=== PATIENT | male | born 2005 | race Caucasian/White ===

== ENCOUNTER 2025-05-28 18:30 | Emergency (ER) | payer SELFPAY ==
[2025-05-28 18:41] VITALS: BP 118/71; PULSE 77; TEMP 37.1; O2SAT 99; BMI 34.3
--- NOTE | 2025-05-28 19:33 | ED.URI1 ---
HPI - URI/Sore Throat General Chief Complaint: Upper Respiratory Infection Stated Complaint: Upper Respiratory Infection Time Seen by Provider: 05/28/25 19:25 Source: patient History of Present Illness HPI Narrative: Patient is a 19-year-old male who presents to the ER with concerns of persisting cough. He denies any recent fever or chills but states he was exposed to his sister who was diagnosed with COVID. Patient reports having similar symptoms at the time of her illness and assumed that he had the same. It is now 3 weeks later and he has a irritating cough that is nonproductive right sided throat pain and slight ear pressure. He denies any chest pain or shortness of breath and has still been active. He denies any nausea vomiting or abdominal pain. Patient states he figured the symptoms would be better by now but seem to be persisting. Throat discomfort is improved with drinking liquids. He speaks with a clear voice and appears in no distress. He denies any history of asthma denies any recent long travel surgeries or flights. MD elicited complaint: Reports cough and sore throat Pertinent past history: Denies asthma Onset (ago): week(s) (3) Consistency: Reports constant Severity: mild Able to tolerate fluids by mouth: Yes Context: Reports sick contacts Associated symptoms: Reports denies other symptoms Related Data Previous Rx's ?Medication ?Instructions ?Recorded amoxicillin 875 mg tablet 875 mg PO BID 10 days #20 tabs 05/28/25 benzonatate 200 mg capsule 200 mg PO TID PRN cough #15 caps 05/28/25 Allergies Allergy/AdvReac Type Severity Reaction Status Date / Time No Known Drug Allergies Allergy Verified 05/28/25 18:43 Review of Systems ROS Constitutional Denies: fever or chills Eyes Denies: change in vision Ears, nose, mouth, and throat Reports: throat pain; Denies: neck pain, throat swelling, difficulty swallowing or hoarseness Cardiovascular Denies: chest pain, palpitations or edema Respiratory Reports: cough and chest congestion; Denies: shortness of breath, wheezing, stridor, pain on inspiration, change in phlegm color or coughing up blood Gastrointestinal Denies: abdominal pain, nausea or vomiting Genitourinary Denies: painful urination Musculoskeletal Denies: back pain Integumentary/Breast Denies: rash Neurological Denies: headache Psychiatric Denies: anxiety Endocrine Denies: excessive urination PFSH PFSH Social History Little interest or pleasure in doing things: not at all Feeling down, depressed, or hopeless: not at all Exam Narrative Exam Narrative: Nurse's notes and vital signs reviewed and patient is not hypoxic. General: The patient appears well and in no apparent distress. Patient is resting comfortably in cart. Patient speaks in clear sentences and tolerate secretions, he is drinking fluid at the bedside. Skin: Warm, dry, no pallor noted. No evidence of rash Head: Normocephalic, atraumatic Neck: Supple, trachea midline, no tenderness, minimal tender anterior cervical adenopathy, no posterior occipital adenopathy. Ears, nose, mouth, and throat: Left TM is clear with no auricle or tragal tenderness. Right TM is injected with slight middle ear effusion. Oral mucosa is moist, posterior oropharynx with 2+ tonsillar hypertrophy that appears symmetric with erythema no exudate, uvula is midline Cardiovascular: Regular rate and rhythm Respiratory: Patient is in no distress, no accessory muscle use, lungs are clear to auscultation, no wheezing, rales, or rhonchi. Chest wall: No tenderness Musculoskeletal: Normal ROM, no tenderness, no swelling GI: Normal bowel sounds, no tenderness to palpation, no masses appreciated. No rebound, guarding, or rigidity noted. Neurological: Alert and oriented ?4 Psychiatric: Cooperative Constitutional Vital Signs, click to edit/add: Last Vital Signs Temp 98.7 F 05/28/25 18:41 Pulse 77 05/28/25 18:41 Resp 18 05/28/25 18:41 BP 118/71 05/28/25 18:41 Pulse Ox 99 05/28/25 18:41 O2 Del Method Room Air 05/28/25 18:41 Course Vital Signs Vital signs: Vital Signs Temperature 98.7 F 05/28/25 18:41 Pulse Rate 77 05/28/25 18:41 Respiratory Rate 18 05/28/25 18:41 Blood Pressure 118/71 05/28/25 18:41 Pulse Oximetry 99 05/28/25 18:41 Oxygen Delivery Method Room Air 05/28/25 18:41 Temperature 98.7 F 05/28/25 18:41 Pulse Rate 77 05/28/25 18:41 Respiratory Rate 18 05/28/25 18:41 Blood Pressure 118/71 05/28/25 18:41 Pulse Oximetry 99 05/28/25 18:41 Oxygen Delivery Method Room Air 05/28/25 18:41 MDM - URI/Sore Throat MDM Narrative Medical decision making narrative: Patient is not hypoxic, vital signs stable, PERC score 0. Patient has irritating cough following likely COVID upper respiratory infection with similar symptoms and exposure to his sister. Patient notes his cough is annoying and irritating and consistent with likely a postviral process. He denies any shortness of breath. We discussed his throat irritation and symptoms on the right side involving his throat and ear. He does have conjunctival injection of his right ear and prominent tonsillar hypertrophy with erythema. He is swallowing secretions easily and agreeable to tolerate oral amoxicillin for a course of antibiotics given his length of symptoms and ear involvement. He will be given a prescription of Tessalon Perles for his cough. We discussed a follow-up to the family doctor for reevaluation of symptoms and importance of PCP care. Viral swabs were discussed but we will hold given his clinical picture and length of symptoms. Assumed COVID exposure to his sister. The patient is to followup with primary care physician in next 2-3 days or to return to the emergency department should any of the signs or symptoms worsen or new symptoms develop. Patient had questions answered. The patient agrees with the following Diagnosis and Treatment plan and the patient will be discharged home. Differential Diagnosis Differential diagnosis: Likely upper respiratory infection, otitis media, influenza and pharyngitis Discharge Plan Discharge Chief Complaint: Upper Respiratory Infection Clinical Impression: Upper respiratory infection, Acute right otitis media, Acute tonsillitis, Close exposure to COVID-19 virus Patient Disposition: Home, Self-Care Time of Disposition Decision: 19:35 Condition: Good Prescriptions / Home Meds: New amoxicillin 875 mg tablet 875 mg PO BID 10 Days Qty: 20 0RF benzonatate 200 mg capsule 200 mg PO TID PRN (Reason: cough) Qty: 15 0RF Print Language: Mexican Instructions: Ear Infection (ED), Upper Respiratory Infection (ED), COVID-19: Slow the Coronavirus Spread (ED) Referrals: [facility] [Physician] - As soon as possible Jaz Winters NP [Physician] - As soon as possible Discharge Date/Time: 05/28/25 19:53
--- OUTSIDE RECORDS SUMMARY | 2025-05-28 19:39 | XMS_ITS | Patient Health Record ---
Author Organization [facility] Address [address] [place] [address] Care Team Providers Care Order Checker Packer Processer Name Role Phone MARIELENA MARIELENA Primary Care Provider Unavailab zeke [place], Kara Unavailable [phone] Allergies No Known Allergies Reason For Referral No Information Medications Medication SIG (Take, Route, Frequency, Duration) Notes Start Date End Date Status CloNIDine Hydrochloride 0.1 mg take 1 ta blet by oral route 2 times every day ORAL CLONIDINE HCL Not-TakingAdderall XR 25 mgtake 1 capsule by oral route every day in the morning upon awakening ORALADDERALL XRNot-Taking Social History Tobacco Use: Social History Observation Description Date Details (start date - stop date) Current Smoker NA - NA Smoking History Question Answer Notes Smoking Status Current Smoker Problems Problem Type SNOMED Code ICD Code Onset Dates Problem Status W/U Status Risk Notes Problem Information temporarily unavailable Right hand pain (M79.641) ActiveconfirmedProblemInformation temporarily unavailableDisplaced fracture of distal phalanx of right ring finger, initial encounter for closed fracture (S6 2.634A)ActiveconfirmedProblemInformation temporarily unavailableDisplaced fracture of distal phalanx of right ring finger, initial encounter for open fracture (S62.634B)ActiveconfirmedProblemInformation temporarily unavailable Crushing injury of finger, initial encounter (S67.10XA)Activeconfirmed Plan Of Treatment No Information Insurance Providers Payer Name Payer Address Payer Phone Subscriber Number Group Number Insured Name Patient Relationship to Insured Coverage Start Date Coverage End Date Medicaid [place] [address] [facility] [place] [phone] [id number] Afsaneh SAHU - patient is the insured Medical (General) History Surgical History Surgery Date(Month/Year)
--- OUTSIDE RECORDS SUMMARY | 2025-05-28 19:39 | XMS_ITS | Clinical Summary ---
Author Organization [facility] Address [address], [address] [place] [address] Care Team Providers Care Retail Marketing Coordinator Name Role Phone John Jeter MD Primary Care Provider [phone] Allergies Active AllergyReactionsCriticalityNoted DateCommentsDust Mite Ctsvsjh2807/16/2014 Medications No known medications Active Problems ProblemNoted DateDiagnosed DateAcute tikfnkloizgu86/06/2020Left lower quadrant abdominal pain11/02/2019 Immunizations ImmunizationAdministration DatesNext DueDTaP, INFANRIX, (age 6w-6y), IM, 0.5mL 02/10/2008,03/13/2005,03/28/2004,2003,2003HPV, GARDASIL 9, (age 9y- 45y), IM, 0.5mL12/24/2015,03/16/2015,12/22/2014Hep A, HAVRIX, VAQTA, (age 12m- 18y), IM, 0.5mL06/12/2011,12/09/2010Hep B, ENGERIX-B, RECOMBIVAX-HB, (age - 19y), IM, 0.5mL03/28/2004,2003,2003Hib PRP-T, ACTHIB (age 2m-5y, Adlt Risk), HIBERIX (age 6w-4y, Adlt Risk), IM, 0.5mL02/03/2005,03/28/2004, 2003,2003Influenza Virus Owyxdwo9204/13/2017,03/16/2015,03/14/2014, 03/08/2013,04/20/2012MMR, PRIORIX, M-M-R II, (age 12m+), SC, 0.5mL11/10/2007, 02/03/2005Meningococcal ACWY, MENACTRA (MenACWY-D), (age 9m-55y), IM, 0.5mL 10/06/2019,12/22/2014Meningococcal B, TRUMENBA, (age 10y-25y), IM, 0.5mL 10/06/2019Pneumococcal, PCV-13, PREVNAR 13, (age 6w+), IM, 0.5mL02/03/2005, 03/28/2004,2003,2003Poliovirus, IPOL, (age 6w+), SC/IM, 0.5mL 02/10/2008,05/13/2005,03/28/2004,2003,2003TDaP, ADACEL (age 10y- 64y), BOOSTRIX (age 10y+), IM, 0.5mL08/30/2022Varicella, VARIVAX, (age 12m+), SC, 0.5mL02/10/2008,02/03/2005 Family History Medical HistoryRelationNameCommentsDiabetesMaternal CousinDiabetesMaternal GrandmotherHeart AttackMaternal GrandmotherRelationNameStatusCommentsMaternal CousinMaternal Grandmother Social History Tobacco UseTypesPacks/DayYears UsedDateSmoking Tobacco: NeverPassive Smoke Exposure: YesSmokeless Tobacco: Never Tobacco Cessation:Counseling Given: Not Answered Alcohol UseStandard Drinks/WeekCommentsNo0 (1 standard drink = 0.6 oz pure alcohol)AUDIT-CAnswerDate RecordedQ1: How often do you have a drink containing alcohol?Never04/01/2023Q2: How many drinks containing alcohol do you have on a typical day when you are drinking?Patient does not drink04/01/2023Q3: How often do you have six or more drinks on one occasion?Never04/01/2023HQ-2AnswerDate RecordedPHQ-2 Sdjer1409Interpersonal Safety Domain Source: IP Abuse ScreeningAnswerDate RecordedRead-Only, Retired: Physical QcclgPxdpkm06/04/2023 Read-Only, Retired: Verbal MfigsZbpkab23/04/2023Read-Only, Retired: Emotional dinspLqaqbf08/04/2023Read-Only, Retired: Financial NcbkvZjmyho37/04/2023Read- Only, Retired: Sexual womwnUxmmby61/04/2023Sex and Gender InformationValueDate RecordedSex Assigned at BirthNot on fileLegal XllZxij7808/08/2012 9:21 AM EST Gender IdentityNot on fileSexual OrientationNot on file Last Filed Vital Signs Vital SignReadingTime TakenCommentsBlood Swpjtwzs893/7010 8:39 PM EDT Oatnk014104/01/2023 8:39 PM COFCvrwdkbopzp94.6 ??C (97.8 ??F)04/01/2023 8:39 PM EDTRespiratory Azwl0409 8:39 PM EDTOxygen Sxtteytrls15%04/01/2023 8:39 PM EDTInhaled Oxygen Concentration--Zoobdk362.9 kg (260 lb)04/01/2023 8:39 PM XQPEdceuo003.4 cm (6' 1 )04/01/2023 8:39 PM EDTBody Mass Index34.310 8:39 PM EDT Plan of Treatment Health MaintenanceDue DateLast DoneCommentsDepression Crcprf1106/09/2015HIV screen 2018Meningococcal B vaccine (2 of 2 - Trumenba SCDM 2-dose series) Hepatitis C xfzfkh7106/09/2021Flu vaccine (#1)01/27/2025 04/13/2017, 04/28/2016, 03/16/2015, Additional history existsCOVID-19 Vaccine ( - season)2025DTaP/Tdap/Td vaccine (8 - Td or Tdap)08/30/2032 08/30/2022, 12/22/2014, 02/10/2008, Additional history existsHepatitis B vaccine Cdsatdxfj03/30/2004, 03/28/2004, 2003, Additional history existsHib zpklzfnHuhrdhkgp12/08/2005, 03/28/2004, 2003, Additional history exists Pneumococcal 0-49 years VbzeylaCybuhokrj00/08/2005, 03/28/2004, 2003, Additional history existsMeasles,Mumps,Rubella (MMR) vaccineDiscontinued 11/10/2007, 02/03/2005Polio qlhtorvAbktnxfof29/14/2008, 05/13/2005, 03/28/2004, Additional history existsVaricella fjdkiffGayyzeexb05/14/2008, 02/03/2005 Hepatitis A bhfxptbWyrpiejpl75/15/2011, 12/09/2010HPV vaccineCompleted 12/24/2015, 03/16/2015, 12/22/2014Meningococcal (ACWY) vaccineCompleted 10/06/2019, 12/22/2014 Insurance Care Teams Team MemberRelationshipSpecialtyStart DateEnd Date John Jeter MD [address] [place] [phone] PCP - GeneralPediatrics11/01/21
[2025-05-28] MEDS: AMOXICILLIN 500 MG CAPSULE 1000 MG PO (19:49)
== END 2025-05-28 19:53 | disposition home or self-care (01) ==
PROVIDERS: Emergency Provider Student in an Organized Health Care Education/Training Program
DX: J06.9 Acute upper respiratory infection, unspecified (principal); H66.91 Otitis media, unspecified, right ear; J03.90 Acute tonsillitis, unspecified; Z20.822 Contact with and (suspected) exposure to COVID-19
CPT/HCPCS: 99283